=== PATIENT | female | born 1960 | race Caucasian/White ===

== ENCOUNTER 2017-10-30 14:41 | Emergency (ER) | payer OTHER ==
[~2017-10-30] VITALS: Ht 175.3 cm; Wt 61.4 kg
[2017-10-30 14:44] VITALS: BP 146/77; TEMP 97.6
[2017-10-30] MEDS ORDERED: PROBIOTIC FORMU1 CAP PO (14:51)
[2017-10-30 16:02] VITALS: PULSE 62
== END 2017-10-30 16:10 | disposition home or self-care (01) ==
LOC: COL.ER 14:41
DX: S61.012A Laceration without foreign body of left thumb without damage to nail, initial encounter (principal); W26.0XXA Contact with knife, initial encounter